=== PATIENT | female | born 2000 | race Caucasian/White ===

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

== ENCOUNTER 2022-03-11 19:09 | Emergency (ER) | payer OTHER, SELFPAY ==
[2022-03-11 19:24] VITALS: BP 131/93; PULSE 71; RESP 14; TEMP 37.1; O2SAT 100
[2022-03-11 19:26] VITALS: BP 131/93; PULSE 71; RESP 14; TEMP 37.1; O2SAT 100
--- NOTE | 2022-03-11 19:36 | ED.GENADULT ---
HPI - General Adult General Chief complaint: Urogenital-Female Stated complaint: Buring urination, low back pain, fatigue History of Present Illness HPI narrative: 21 y/o female. PMHx none reported. Presents to [facility] today with acute complaints of urinary frequency & dysuria since this AM. Client tells me that when she initiates her urine stream, she has been experiencing burning to her urethral meatus region. In addition, she describes a mild degree of suprapubic 'pressure'. The patient reports that these are often the same issues she will begin to experience with the onset of UTI historically. No fevers. No gross abdominal pain, N/V. She endorses a mild and intermittent low back 'aching' sensation. No severe pain or hematuria. Client denies pelvic pain, vaginal discharge. She reports to have had only one sexual partner, and the same sexual partner, for a long time. Denies concerns for venereal disease. No additional acute c/o upon PE. Related Data Home Medications Medication Instructions Recorded Confirmed levonorgestrel 20 mcg/24 hours (7 20 mcg intrauterine ONCE 08/14/20 03/11/22 yrs) 52 mg intrauterine device (Mirena) Allergies Allergy/AdvReac Type Severity Reaction Status Date / Time No Known Allergies Allergy Verified 03/11/22 19:25 Review of Systems Review of Systems: CONSTITUTIONAL: Denies fever, chills, sweats. EYES: Denies visual changes, redness, discharge. ENT: Denies rhinorrhea, congestion, sore throat, otalgia. CARDIOVASCULAR: Denies chest pain, palpitations, edema. RESPIRATORY: Denies dyspnea, wheezing, cough GASTROINTESTINAL: Denies abdominal pain, nausea, vomiting, diarrhea. GENITOURINARY: Positive dysuria, urgency. No hematuria, abnormal discharge SKIN: Denies rash or itching. MUSCULOSKELETAL: Intermittent low back 'ache', no joint pain, or myalgia. NEUROLOGIC: Denies numbness, or focal weakness. PSYCHIATRIC: Denies anxiety or depression. ON LICENSE OF [facility] Past Medical History Medical History Patient denies medical problems Surgical History Surgical History No significant past surgical history Social History Social History Smoking status: Never smoker Alcohol intake: never Exam Narrative: GENERAL: This is a well-nourished, well-developed adult, in no apparent distress. HEAD: normocephalic. EARS: External ears normal. NOSE: External nose normal. THROAT: Mucous membranes moist. NECK: Neck supple. CARDIOVASCULAR: Regular rate and rhythm. RESPIRATORY: Clear to auscultation. GASTROINTESTINAL: Abdomen soft, non-tender, nondistended. Bowel sounds are active. No guarding. No CVA tenderness. SKIN: warm, intact with no suspicious lesions or rash, good texture and turgor. NEURO: Alert and age appropriate. Course Course Level of Care: Express Care Visit Vital Signs Vital signs: Vital Signs Temperature 37.1 C 03/11/22 19:24 Pulse Rate 71 03/11/22 19:24 Respiratory Rate 14 03/11/22 19:24 Blood Pressure 131/93 H 03/11/22 19:24 Pulse Oximetry 100 03/11/22 19:24 Oxygen Delivery Room Air 03/11/22 19:24 Temperature 37.1 C 03/11/22 19:26 Pulse Rate 71 03/11/22 19:26 Respiratory Rate 14 03/11/22 19:26 Blood Pressure 131/93 H 03/11/22 19:26 Pulse Oximetry 100 03/11/22 19:26 Oxygen Delivery Room Air 03/11/22 19:26 Medical Decision Making [facility] Narrative Medical decision making narrative: -Afebrile, non-tachycardic, appears non-toxic. -Urine Dip stick reveals 1+ leukocytes. Mild RBCs, consider potential cystis. -No CVA tenderness, no gross hematuria. Similar to presentation of historical UTI. -Her urine has been send for additional Culture analysis. -Today, I will start her on oral Augmentin regimen, as she her most recent Urine Culture reveals > 100,
== END 2022-03-11 19:36 | disposition home or self-care (01) ==
PROVIDERS: Emergency Provider Nurse Practitioner Adult Health; PCP Pediatrics
DX: N39.0 Urinary tract infection, site not specified (principal)
CPT/HCPCS: 81003; 87077; 87086; 87088; 87186; 99213; G0463

== ENCOUNTER 2022-05-02 16:33 | Emergency (ER) | payer OTHER, SELFPAY ==
--- NOTE | ~2022-05-02 | US_ITS ---
EXAMINATION: US pelvic complete DATE: 05/02/2022 21:23 INDICATION: LLQ abd pain, concern for torsion TECHNIQUE: Multiple transabdominal and endovaginal sonographic images of the pelvis were obtained. COMPARISON: CT abdomen pelvis, same date. FINDINGS: Uterus: 9.0 x 2.8 x 5.2 cm. Endometrial complex measures 3.9 mm. IUD, in good position. Right Ovary: 4.2 x 2.1 x 2.7 cm. Vascular flow is present. Left Ovary: 4.9 x 2.0 x 2.3 cm. Vascular flow is present. There is no free fluid in the pelvis. IMPRESSION: IUD, in good position. Otherwise normal pelvic sonogram findings. Specifically, there is no sonograph ic evidence of ovarian torsion. Reviewed, dictated and finalized at location K. IMPRESSION: IUD, in good position. Otherwise normal pelvic sonogram findings. Specifically, there is no sonographic evidence of ovarian torsion.
--- NOTE | ~2022-05-02 | CT_ITS ---
EXAMINATION: CT abdomen pelvis w con DATE: 05/02/2022 19:39 INDICATION: LLQ tenderness, epigastric pain TECHNIQUE: Computed tomography (CT) of the abdomen and pelvis was performed with 100 mL Omnipaque-350 intravenous contrast. Automated exposure control and iterative reconstruction technique were employe d. The dose-length product was 373.10 mGy-cm. COMPARISON: None. FINDINGS: Lower thorax: Unremarkable Liver: Normal. Biliary/Gallbladder: Gallbladder is normal. No bile duct dilation. Pancreas: No mass or duct dilation. Spleen: Normal. Adrenals:No mass. Kidneys: No suspicious mass, stone, or hydronephrosis. Simple left midpole cyst. GI tract: Distal esophageal wall edema as can be seen with esophagitis. No small or large bowel dilat ion. Normal appendix. Mesentery/Peritoneum: No ascites, mass, or free air. Retroperitoneum: No mass. Pelvis: Mild left ovarian enlargement, up to a maximum dimension of 5 cm, with a suggestion of mild s urrounding inflammatory change. Remaining pelvic organs are within normal limits. IUD, in good positi on. Soft Tissues: Soft tissues and body wall unremarkable. Bones: No acute osseous finding. IMPRESSION: Mildly enlarged, inflamed left ovary, consider torsion in the differential and pelvic ultrasound for further evaluation. Reviewed, dictated and finalized at location K.
--- NOTE | 2022-05-02 17:03 | ED.ABDPAIN ---
HPI - Abdominal Pain General Chief Complaint: Abdominal Pain <MAYURI Mason Last Filed: 05/02/22 22:01> Stated Complaint: abd pain after drinking last night <MAYURI Mason Last Filed: 05/02/22 22:01> Time Seen by Provider: 05/02/22 16:55 <MAYURI Mason Last Filed: 05/02/22 22:01> History of Present Illness HPI narrative: 22-year-old female here for evaluation of abdominal pain since last evening. Patient states the pain is a sharp stabbing pain in her epigastric region that radiates to her left lower quadrant. Denies a history of previous similar pain. She attempted Advil yesterday without significant relief of her pain. She states that she has had 2 episodes of vomiting today nonbloody/nonbilious emesis. No constipation, diarrhea, fevers, chills, dysuria urgency. Patient states that she was drinking alcohol last night and the pain came on after drinking vodka. <MAYURI Mason Last Filed: 05/02/22 22:01> Related Data Home Medications: Home Medications Medication Instructions Recorded Confirmed levonorgestrel 20 mcg/24 hours (8 20 mcg intrauterine ONCE 08/14/20 03/11/22 yrs) 52 mg intrauterine device (Mirena) <MAYURI Mason Last Filed: 05/02/22 22:01> Allergies/Adverse Reactions: Allergies Allergy/AdvReac Type Severity Reaction Status Date / Time No Known Allergies Allergy Verified 03/11/22 19:25 <MAYURI Mason Last Filed: 05/02/22 22:01> Review of Systems Review of Systems: Gen: Denies fevers or chills Eyes: Denies eye pain or visual change ENT: Denies congestion Respiratory: Denies shortness of breath or cough CV: Denies chest pain or palpitations GI: Reports abdominal pain nausea and vomiting. denies burning, urgency, frequency or hematuria Musculoskeletal: Denies back pain or muscle pain Neuro: Denies numbness, tingling, weakness or focal weakness Skin: Denies rash Except as documented, all other systems reviewed and negative <Aparna Coy PA-C - Last Filed: 05/02/22 22:01> [facility] Past Medical History Medical History: Medical History Patient denies medical problems <Aparna Coy PA-C - Last Filed: 05/02/22 22:01> Surgical History Surgical History: Surgical History No significant past surgical history <Aparna Coy PA-C - Last Filed: 05/02/22 22:01> Social History Social History: Social History Smoking status: Never smoker Alcohol intake: never <Aparna Coy PA-C - Last Filed: 05/02/22 22:01> Exam Narrative: APPEARANCE: Well appearing, no pain in distress, well-nourished. Head: Normocephalic and atraumatic. EYES: PERRLA/EOMI, conjunctivae clear NOSE: No nasal drainage EARS: External ear normal in appearance THROAT: Oropharynx is clear. Mucous membranes are moist. NECK: Supple. No adenopathy, no masses. RESPIRATORY: Airway patent, respirations nonlabored. Clear to auscultation bilaterally, no rales, rhonchi, wheezing. CARDIOVASCULAR: Regular rate and rhythm without murmurs, rubs, or gallops. ABDOMINAL: Tenderness to palpation in her epigastric/llq region. normoactive bowel sounds. Soft, nondistended. No rebound tenderness or guarding. MUSCULOSKELETAL: Extremities are warm and well-perfused. Moves all extremities well. No edema. NEURO: Normal speech. No focal neurologic deficits. SKIN: Skin is warm and dry. No rashes. PSYCHIATRIC: Normal affect/mood. <Aparna Coy PA-C - Last Filed: 05/02/22 22:01> Course PROPERTY SUPERVISOR/PA Physician Supervision For this encounter, I have reviewed the mid-level provider documentation, treatment plan and medical decision making. I have had [id number] time with the patient.
[2022-05-02 17:25] VITALS: BP 133/98; PULSE 83; RESP 22; O2SAT 100
[2022-05-02 17:32] VITALS: BP 135/89; PULSE 82; RESP 8; O2SAT 97
[2022-05-02 17:35] LABS: Basophils Percent Auto 0.2 % (0.2-1.2); Eosinophils Percent Auto 0.2 % (0-4.4); Hematocrit 41.5 % (37.0-47.0); Hemoglobin 13.9 g/dL (12.0-15.0); Immature Granulocyte Absolute 0.05 K/mm3 (0.00-0.031); Immature Granulocyte Percent A 0.3 % (0-0.5); Lymphocytes Absolute Auto 2.08 K/mm3 (0.9-3.2); Lymphocytes Percent Auto 12.1 % (18.3-44.2); Mean Corpuscular HGB Conc 33.5 g/dl (32-36); Mean Corpuscular Hemoglobin 29.5 pg (26-34); Mean Corpuscular Volume 88.1 fl (80-100); Mean Platelet Volume 9.3 fl (7.4-10.4); Monocytes Percent Auto 5.5 % (2.6-8.5); Neutrophils Absolute Auto 14.1 K/mm3 (1.3-6.7); Neutrophils Percent Auto 81.7 % (45.5-73.1); Platelet Count Result 237 k/mm3 (150-375); Red Blood Count 4.71 M/mm3 (4.2-5.4); Red Cell Distribution Width 11.8 % (11.5-14.5); White Blood Count 17.2 K/mm3 (4.5-10.0)
[2022-05-02] MEDS: SODIUM CHLORIDE 0.9% IV 1,000 ML 999 ML IV CONT (17:37)
[2022-05-02] MEDS: FAMOTIDINE 20 MG/2 ML VIAL IV PUSH (17:38)
[2022-05-02] MEDS: ONDANSETRON INJ 4 MG/2 ML VIAL IV PUSH (17:38)
[2022-05-02 17:51] LABS: Alanine Aminotransferase 24 U/L (6-35); Albumin Level 4.8 g/dL (3.5-5.1); Alkaline Phosphatase 50 U/L (38-126); Anion Gap 10 mmol/L (8-16); Aspartate Amino Transferase 29 U/L (14-36); Bilirubin,Total 0.8 mg/dL (0.2-1.3); Blood Urea Nitrogen 14 mg/dL (7-17); Calcium 9.4 mg/dL (8.4-10.2); Carbon Dioxide 25 mmol/L (22-30); Chloride 104 mmol/L (98-107); Estimated Glomerular Filt Rate > 60; Glucose 98 mg/dL (65-110); Lipase 69 U/L (23-300); Potassium 3.7 mmol/L (3.4-5.0); Sodium 139 mmol/L (137-145)
[2022-05-02 18:18] VITALS: PULSE 83; RESP 21; O2SAT 91
[2022-05-02 18:31] VITALS: PULSE 67; RESP 20; O2SAT 100
[2022-05-02 18:45] VITALS: PULSE 89; RESP 22; O2SAT 100
[2022-05-02 19:21] LABS: Appearance Urine Slightly Cloudy (Clear); Bilirubin Urine Negative (Negative); Blood Urine 2+ (Negative); Color Urine Yellow (Yellow); Glucose Urine UA Negative (Negative); Ketones Urine Negative (Negative); Leukocyte Esterase Ur 1+ LEU/UL (Negative); Nitrate Urine Negative (Negative); Protein Urine Negative (Negative); Specific Grav Ur 1.015 (1.001-1.035); Urobilinogen Urine 0.2 mg/dL (<2.0); pH Urine 7.5 (5.0-9.0)
[2022-05-02 19:24] LABS: Bacteria Urine Trace /hpf; Mucus Urine Rare /lpf; RBC Urine 0-2 /hpf (0-2); Squamous Epithelial Cell Urine Moderate /hpf (Few)
[2022-05-02 19:25] LABS: Add Urine Microscopic? YES
[2022-05-02] MEDS: KETOROLAC 15 MG/ML VIAL (*BKC) IV PUSH ×2 (20:29→21:49)
== END 2022-05-02 21:56 | disposition home or self-care (01) ==
PROVIDERS: Physician Assistant; Emergency Provider Emergency Medicine; PCP Pediatrics
DX: R10.32 Left lower quadrant pain (principal); Z97.5 Presence of (intrauterine) contraceptive device; N83.8 Other noninflammatory disorders of ovary, fallopian tube and broad ligament
CPT/HCPCS: 36415; 74177; 76856; 80053; 81001; 81025; 83690; 85025; 87086; 87088; 96361; 96374; 96375; 99284; J1885; J2405; J7030; Q9967

== ENCOUNTER 2022-05-20 16:02 | Emergency (ER) | payer OTHER, SELFPAY ==
[2022-05-20 16:14] VITALS: BP 130/80; PULSE 100; RESP 16; TEMP 36.9; O2SAT 100
--- NOTE | 2022-05-20 16:46 | ED.URI ---
HPI - URI/Sore Throat General Chief Complaint: Upper Respiratory Infection Stated Complaint: congestion, cough, pain w/ breathing Time Seen by Provider: 05/20/22 16:40 Source: patient, RN notes reviewed and old records reviewed Mode of arrival: ambulatory Limitations: no limitations History of Present Illness HPI Narrative: 22-year-old female who presents to [facility] with complaints of nasal congestion with yellowish drainage,dry cough, pain with deep breathing and coughing along lower ribs, denies any known fevers for the past 3 day duration.Patient has taken Ibuprofen for her symptoms, denies any antihistamines or cough medications OTC. Patient has had Covid vaccinations and had COVID in August of 2020. MD elicited complaint: cough (.), nasal congestion and other (pain with deep breathing and cough) Onset (ago): day(s) (day 3 of symptoms) Able to tolerate fluids by mouth: Yes Treatments prior to arrival: ibuprofen Related Data Home Medications Medication Instructions Recorded Confirmed levonorgestrel 20 mcg/24 hours (8 20 mcg intrauterine ONCE 08/14/20 05/20/22 yrs) 52 mg intrauterine device (Mirena) Allergies Allergy/AdvReac Type Severity Reaction Status Date / Time No Known Allergies Allergy Verified 05/20/22 16:17 Review of Systems Review of Systems: CONSTITUTIONAL: Denies malaise, chills, sweats, or fever. EYES: Denies visual changes, redness, or discharge. ENT: Reports rhinorrhea, congestion, no sinus pain, no otalgia positive for sore throat. CARDIOVASCULAR: Denies chest pain, palpitations, or edema. RESPIRATORY: Reports cough.? Denies dyspnea. states some rib pain with cough and deep breathing GASTROINTESTINAL: Denies abdominal pain, nausea, vomiting, diarrhea SKIN: Denies rash or itching. MUSCULOSKELETAL: Denies myalgia. NEUROLOGIC: Denies headache. All systems reviewed & are unremarkable except as noted in HPI and below PMFSH Past Medical History Medical History (Updated 05/25/22 @ 08:58 by Mere Sierra NP) COVID-19 2020 UTI (urinary tract infection) Surgical History Surgical History (Updated 05/25/22 @ 08:50 by Mere Sierra NP) Hx of tonsillectomy Social History Social History (Updated 05/25/22 @ 08:59 by Mere Sierra NP) Smoking status: Never smoker Alcohol intake: never Substance use type: does not use Gender identity (if verbalized by the patient): Female Comments At time of signature, agree with nursing past medical, surgical, social and family history. There is no relevant family history pertinent to the presenting complaint Exam Narrative: GENERAL: Well-appearing, well-nourished, and in no acute distress. HEAD: Normocephalic EYES: PERRLA, conjunctivae clear ENT: Nares clear, turbinates edematous and erythematous, clear to light yellow discharge. Mucous membranes moist. TM pearly mccray with dull light reflex bilaterally; no tragal tenderness. Oropharynx erythematous without lesions. Tonsils absent, no throat exudate, no drooling, no hoarseness, no trismus, uvula midline. NECK: Supple. No lymphadenopathy CHEST: Clear to auscultation, breath sounds equal. No wheezing, rhonchi, rales, or stridor. No respiratory distress, speaks in full sentences.Some rib pain with cough and deep breathing, no dyspnea noted SAO2 100% on room air HEART: Regular rate and rhythm. No murmur heard. SKIN: Warm, dry, no rash. NEURO: Alert and oriented x3. PSYCH: Normal mood and affect Course Course Emergency Course: Patient is aware of diagnosis, understands and agrees to treatment plan.? Anticipatory guidance given.? Patient agrees to follow-up as directed and is aware of reasons to seek care at the emergency department. Portions of this record may have been created with voice recognition software Level of Care: Express Care Visit Vital Signs Vital signs: Vital Signs Temperature 36.9 C 05/20/22 16:14 Pulse Rate 100
== END 2022-05-20 17:06 | disposition home or self-care (01) ==
PROVIDERS: Emergency Provider Registered Nurse; PCP Pediatrics
DX: J06.9 Acute upper respiratory infection, unspecified (principal); R05.1 Acute cough
CPT/HCPCS: 99213; G0463

== ENCOUNTER 2023-02-01 13:07 | Emergency (ER) | payer OTHER, SELFPAY ==
[2023-02-01 13:15] VITALS: BP 128/88; PULSE 91; RESP 18; TEMP 36.6; O2SAT 100
--- NOTE | 2023-02-01 13:26 | ED.URI ---
HPI - URI/Sore Throat General Chief Complaint: Upper Respiratory Infection Stated Complaint: Hadache;Sore throat Source: patient and RN notes reviewed History of Present Illness HPI Narrative: 22 year old F presents to urgent care with complaints of a sore throat since Tuesday. Patient states she had a headache prior to that for approximately 1 week that did resolve. Patient denies any congestion, ear pain fever, chills chest pain shortness of breath, vomiting, or diarrhea. Patient did gargle salt water 1 time with minimal relief. Related Data Home Medications Medication Instructions Recorded Confirmed No Home Medications 02/01/23 02/01/23 Allergies Allergy/AdvReac Type Severity Reaction Status Date / Time No Known Allergies Allergy Verified 02/01/23 13:12 Review of Systems Review of Systems: CONSTITUTIONAL: Denies fever, chills, or sweats. EYES: Denies visual changes, redness, or discharge. ENT: sore throat CARDIOVASCULAR: Denies chest pain, palpitations, or edema. RESPIRATORY: Denies cough or dyspnea. GASTROINTESTINAL: Denies abdominal pain, nausea, vomiting, or diarrhea. GENITOURINARY: Denies dysuria or hematuria. SKIN: Denies rash or itching. MUSCULOSKELETAL: Denies back pain, joint pain, or myalgia. NEUROLOGIC: Denies headache, numbness, or weakness. Pertinent positives per HPI. [facility] Past Medical History Medical History (Updated 02/01/23 @ 13:33 by Laila Tenorio, [facility]) COVID-19 2020 UTI (urinary tract infection) Surgical History Surgical History (Updated 05/25/22 @ 08:50 by Mere Sierra NP) Hx of tonsillectomy Social History Social History (Updated 05/25/22 @ 08:59 by Mere Sierra NP) Smoking status: Never smoker Alcohol intake: never Substance use type: does not use Gender identity (if verbalized by the patient): Female Comments At the time of my signature, I reviewed and agree with the nursing past medical, surgical, social, and family history. There is no relevant family history pertinent to the patient complaint. Exam Narrative: GENERAL: This is a well-nourished, well-developed patient, in no apparent distress. HEAD: normocephalic, atraumatic. EYES: Sclera clear/white. Vision is grossly intact. EARS: External ears normal, auditory canals clear and without drainage, TMs normal without perforation. Hearing grossly intact. NOSE: External nose normal with no obvious nasal discharge, nares without redness, no rhinorrhea. THROAT: Mucous membranes moist, posterior pharynx erythemic. No exudate noted. NECK: Neck supple, non-tender without lymphadenopathy, masses or thyromegaly. CARDIOVASCULAR: Regular rate RESPIRATORY: No respiratory distress SKIN: warm, intact with no suspicious lesions or rash, good texture and turgor. NEURO: awake, alert, and oriented to person, place and time. There were no obvious focal neurologic abnormalities. Course Course Level of Care: Express Care Visit Vital Signs Vital signs: Vital Signs Temperature 97.8 F 02/01/23 13:15 Pulse Rate 91 02/01/23 13:15 Respiratory Rate 18 02/01/23 13:15 Blood Pressure 128/88 02/01/23 13:15 Pulse Oximetry 100 02/01/23 13:15 Oxygen Delivery Room Air 02/01/23 13:15 Temperature 97.8 F 02/01/23 13:15 Pulse Rate 91 02/01/23 13:15 Respiratory Rate 18 02/01/23 13:15 Blood Pressure 128/88 02/01/23 13:15 Pulse Oximetry 100 02/01/23 13:15 Oxygen Delivery Room Air 02/01/23 13:15 reviewed MDM - URI/Sore Throat MDM Narrative Medical decision making narrative: Rapid strep is negative in the office; however we will send to the lab for confirmation; there is a small percentage chance that it can come back positive; if it is, we will call you in 2-3days; and your prescription will be call in to your pharmacy. However, there is NO indication for antibiotic at this time. -Increase your fluids and Vitamin C. -Oral rinses such as: Salt water g
== END 2023-02-01 13:34 | disposition home or self-care (01) ==
PROVIDERS: Emergency Provider Nurse Practitioner Family; PCP Pediatrics
DX: J02.9 Acute pharyngitis, unspecified (principal); Z86.16 Personal history of COVID-19
CPT/HCPCS: 87081; 87880; 99213; G0463

== ENCOUNTER 2023-02-24 15:23 | Emergency (ER) | payer OTHER, SELFPAY ==
[2023-02-24 15:32] VITALS: BP 138/87; PULSE 76; RESP 16; TEMP 36.8; O2SAT 100
--- NOTE | 2023-02-24 15:38 | ED.FEMALEGU ---
HPI - Female Genitourinary General Chief complaint: Urogenital-Female Stated complaint: Pain urinating; Back spasms Time Seen by Provider: 02/24/23 15:39 Source: patient and RN notes reviewed Mode of arrival: ambulatory Limitations: no limitations History of Present Illness HPI Narrative: 22-year-old female presenting for complaint of burning with urination, frequency, and urgency over the past week. She took azo for the 1st 5 days of symptoms without significant relief. She denies abdominal pain, flank pain, hematuria, nausea vomiting, diarrhea, fevers or chills. She denies concern for STD. LMP irregular with Mirena. Related Data Home Medications Medication Instructions Recorded Confirmed escitalopram oxalate 10 mg tablet 10 mg PO DAILY 02/24/23 02/24/23 lamotrigine 25 mg tablet 75 mg PO DAILY 02/24/23 02/24/23 Allergies Allergy/AdvReac Type Severity Reaction Status Date / Time No Known Allergies Allergy Verified 02/24/23 15:35 Review of Systems Review of Systems: CONSTITUTIONAL: Denies body aches, fever, chills, or sweats. CARDIOVASCULAR: Denies chest pain, palpitations, or edema. RESPIRATORY: Denies cough or dyspnea. GASTROINTESTINAL: Denies abdominal pain, nausea, vomiting, or diarrhea. GENITOURINARY: Reports dysuria, frequency, urgency, denies hematuria, flank pain SKIN: Denies rash, itching, or wounds. MUSCULOSKELETAL: Denies back pain or myalgia. [facility] Past Medical History Medical History COVID-19 2020 UTI (urinary tract infection) Surgical History Surgical History Hx of tonsillectomy Social History Social History Smoking status: Never smoker Alcohol intake: never Substance use type: does not use Gender identity (if verbalized by the patient): Female Comments At time of signature, I have reviewed and agree with nursing past medical, surgical, social and family history unless otherwise noted. Please see nursing chart for further information. There is no relevant family history pertinent to the presenting complaint Exam Narrative: GENERAL: Well-appearing and in no acute distress. HEAD: Normocephalic EYES: EOMI. . ENT: Mucous membranes pink and moist. NECK: Normal AROM. Supple. CHEST: No respiratory distress. Clear to auscultation. HEART: Regular rate and rhythm. ABDOMEN: Soft, nontender, nondistended, normal active bowel sounds. No CVA tenderness MUSCULOSKELETAL: No bony tenderness. SKIN: Warm, dry, no rash. NEURO: No focal deficits. Alert and oriented x3. Gait steady. PSYCH: Normal affect. Course Course Emergency Course: Patient is aware of diagnosis, understands and agrees to treatment plan. Anticipatory guidance given. Patient agrees to follow-up as directed and is aware of reasons to seek care at the emergency department. Portions of this record may have been created with voice recognition software Level of Care: Express Care Visit Vital Signs Vital signs: Vital Signs Temperature 98.2 F 02/24/23 15:32 Pulse Rate 76 02/24/23 15:32 Respiratory Rate 16 02/24/23 15:32 Blood Pressure 138/87 02/24/23 15:32 Pulse Oximetry 100 02/24/23 15:32 Oxygen Delivery Room Air 02/24/23 15:32 Temperature 98.2 F 02/24/23 15:32 Pulse Rate 76 02/24/23 15:32 Respiratory Rate 16 02/24/23 15:32 Blood Pressure 138/87 02/24/23 15:32 Pulse Oximetry 100 02/24/23 15:32 Oxygen Delivery Room Air 02/24/23 15:32 Reviewed MDM - Female Genitourinary MDM Narrative Medical decision making narrative: Results of urine reviewed with patient. Will send for culture. Macrobid Rx. Discussed physical exam findings. Advised supportive measures and signs/symptoms to go to the ER. Pt is appropriate for outpt treatment and f/u. Differential Diagnosis Differential diagnosis
== END 2023-02-24 15:51 | disposition home or self-care (01) ==
PROVIDERS: Emergency Provider Nurse Practitioner Family; PCP Pediatrics
DX: N39.0 Urinary tract infection, site not specified (principal); Z86.16 Personal history of COVID-19
CPT/HCPCS: 81003; 87086; 87088; 99213; G0463

== ENCOUNTER 2023-05-24 15:56 | Emergency (ER) | payer OTHER, SELFPAY ==
[2023-05-24 16:07] VITALS: BP 132/81; PULSE 92; RESP 16; TEMP 37.2; O2SAT 100
--- NOTE | 2023-05-24 16:34 | ED.URI ---
HPI - URI/Sore Throat General Chief Complaint: Upper Respiratory Infection Stated Complaint: Sore Throat;Chills;Headache Time Seen by Provider: 05/24/23 16:25 Source: patient, RN notes reviewed and old records reviewed Mode of arrival: ambulatory Limitations: no limitations History of Present Illness HPI Narrative: 23 year old female who presents to [facility] care with complaints of sore throat, stuffy nose. fatigue, headache which started on Tuesday which has increased in intensity. Patient reports that she has been taking Ibuprofen, Benadryl and also nasal spray. Patient reports that she did a home COVID test yesterday which was negative. Patient reports that she has felt stuffed up and has had some chills and also felt hot with some low grade fevers. MD elicited complaint: sore throat, rhinorrhea, nasal congestion and other (headache) Onset (ago): day(s) (4) Pain scale (0-10): 4 Able to tolerate fluids by mouth: Yes Exacerbating factors: swallowing Treatments prior to arrival: ibuprofen and other (nasal spray, Benadryl) Related Data Home Medications Medication Instructions Recorded Confirmed escitalopram oxalate 10 mg tablet 10 mg PO DAILY 02/24/23 05/24/23 lamotrigine 150 mg tablet 150 mg PO DAILY 05/24/23 05/24/23 trazodone 50 mg tablet 50 mg PO DAILY 05/24/23 05/24/23 Allergies Allergy/AdvReac Type Severity Reaction Status Date / Time No Known Allergies Allergy Verified 05/24/23 16:09 Review of Systems Review of Systems: CONSTITUTIONAL: Reports malaise, chills, sweats, or fever. EYES: Denies visual changes, redness, or discharge. ENT: Reports rhinorrhea, congestion, sinus pain, no otalgia and positive sore throat. CARDIOVASCULAR: Denies chest pain, palpitations, or edema. RESPIRATORY: Reports occasional cough.? Denies dyspnea. GASTROINTESTINAL: Denies abdominal pain, nausea, vomiting, diarrhea SKIN: Denies rash or itching. MUSCULOSKELETAL: Denies myalgia. NEUROLOGIC:Reports headache. All systems reviewed & are unremarkable except as noted in HPI and below PMFSH Past Medical History Medical History COVID-19 2020 UTI (urinary tract infection) Surgical History Surgical History Hx of tonsillectomy Social History Social History Smoking status: Never smoker Alcohol intake: never Substance use type: does not use Gender identity (if verbalized by the patient): Female Comments At time of signature, agree with nursing past medical, surgical, social and family history. There is no relevant family history pertinent to the presenting complaint Exam Narrative: GENERAL: Well-appearing, well-nourished, and in no acute distress. HEAD: Normocephalic EYES: PERRLA, conjunctivae clear ENT: Nares clear, turbinates edematous and erythematous, clear discharge. Mucous membranes moist. TM pearly mccray with dull light reflex bilaterally; no tragal tenderness. Oropharynx erythematous without lesions. Tonsils not present and throat with white exudate, no drooling, no hoarseness, no trismus, uvula midline. NECK: Supple. lymphadenopathy CHEST: Clear to auscultation, breath sounds equal. No wheezing, rhonchi, rales, or stridor. No respiratory distress, speaks in full sentences.SAO2 100% on room air HEART: Regular rate and rhythm. No murmur heard. SKIN: Warm, dry, no rash. NEURO: Alert and oriented x3. PSYCH: Normal mood and affect Course Course Emergency Course: Patient is aware of diagnosis, understands and agrees to treatment plan.? Anticipatory guidance given.? Patient agrees to follow-up as directed and is aware of reasons to seek care at the emergency department. Portions of this record may have been created with voice recognition software Level of Care: Express Care Visit Vital Signs Vital signs: Nataliia
== END 2023-05-24 16:47 | disposition home or self-care (01) ==
PROVIDERS: Emergency Provider Registered Nurse
DX: J02.9 Acute pharyngitis, unspecified (principal); Z79.899 Other long term (current) drug therapy
CPT/HCPCS: 87081; 87804; 87880; 99213; G0463

== ENCOUNTER 2023-09-15 13:17 | Emergency (ER) | payer SELFPAY ==
[2023-09-15 13:36] VITALS: BP 127/93; PULSE 99; RESP 16; TEMP 36.9; O2SAT 100
[2023-09-15 13:38] VITALS: BP 127/93; PULSE 99; RESP 16; TEMP 36.9; O2SAT 100
--- NOTE | 2023-09-15 13:39 | ED.URI ---
HPI - URI/Sore Throat General Chief Complaint: Upper Respiratory Infection Stated Complaint: Sore Throat,Cough,Fever,Chills and STD Test Time Seen by Provider: 09/15/23 13:20 Source: patient Mode of arrival: ambulatory Limitations: no limitations History of Present Illness HPI Narrative: Patient is a 23-year-old female that presents with sore throat, fever, body aches, chills, cough for 2 days. Patient has been taking Sudafed and Advil. Patient is currently on 7 days of Flagyl and doxycycline for exposure to chlamydia. Patient also had 1 time dose of azithromycin. Patient had negative COVID test at home. Reports she did have some vaginal burning and discharge. Denies any nausea, vomiting, diarrhea. Related Data Home Medications Medication Instructions Recorded Confirmed escitalopram oxalate 10 mg tablet 10 mg PO DAILY 02/24/23 09/15/23 lamotrigine 150 mg tablet 75 mg PO DAILY 05/24/23 09/15/23 trazodone 50 mg tablet 25 mg PO DAILY 05/24/23 09/15/23 doxycycline hyclate 100 mg capsule 100 mg PO Q12H 09/15/23 09/15/23 metronidazole 500 mg tablet 500 mg PO BID 09/15/23 09/15/23 Allergies Allergy/AdvReac Type Severity Reaction Status Date / Time No Known Allergies Allergy Verified 05/24/23 16:09 Review of Systems Review of Systems: All systems reviewed & are unremarkable except as noted in HPI and below Constitutional: Constitutional: Reports body ache(s), Reports chills, Denies fatigue, Reports fever(s), Denies headache(s), Denies malaise and Denies weakness Eyes: Eyes: Denies blurry vision, Denies itchy eyes and Denies loss of vision ENT: Denies otalgia, Denies headache(s), Denies nasal congestion, Denies sinus pain and Reports sore throat Cardiovascular: Cardiovascular: Denies chest pain, Denies irregular heart rhythm and Denies dyspnea Respiratory: Respiratory: Reports cough and Denies dyspnea Gastrointestinal: Gastrointestinal: Denies abdominal pain, Denies diarrhea, Denies nausea and Denies vomiting Musculoskeletal: Musculoskeletal: Denies back pain, Denies myalgias and Denies arthralgias Integumentary/Breasts: Skin/Breast: Denies pruritus and Denies rash Neurologic: Denies headache(s), Denies loss of vision and Denies weakness Psychiatric: Psychiatric: Reports no additional psychiatric complaints Endocrine: Endocrine: Denies fatigue Allergic/Immunologic: Allergic/Immunologic: Denies itchy eyes PMFSH Past Medical History Medical History COVID-19 2020 UTI (urinary tract infection) Surgical History Surgical History Hx of tonsillectomy Social History Social History Smoking status: Never smoker Alcohol intake: never Substance use type: does not use Gender identity (if verbalized by the patient): Female Comments At time of signature, agree with nursing past medical, surgical, social and family history. There is no relevant family history pertinent to the presenting complaint. Exam Const: General: cooperative, healthy appearing, comfortable, no acute distress and well nourished Nutritional Appearance: well nourished Orientation/consciousness: patient oriented x3 Limitations: no limitations HENMT: Head: normal to inspection, normocephalic and atraumatic Ears: hearing grossly normal bilaterally, external ears normal, TM's normal bilaterally, EAC's normal and no periauricular adenopathy Face/Nose/Sinus: Normal external nose present, Abnormal mucous membranes and turbinates present erythematous bilateral and diffuse, normal facial exam, sinuses nontender and face symmetric Face and sinus: normal facial exam, sinuses nontender and face symmetric Mouth: Yes Normal oral and palatal mucosa present, Yes lip normal, Yes tongue normal, Yes Normal salivary glands and ducts present, Yes oropharynx normal and Yes moist mucous membranes
== END 2023-09-15 13:59 | disposition home or self-care (01) ==
PROVIDERS: Emergency Provider Nurse Practitioner Family
DX: J10.1 Influenza due to other identified influenza virus with other respiratory manifestations (principal); J02.0 Streptococcal pharyngitis; Z20.822 Contact with and (suspected) exposure to COVID-19; Z86.16 Personal history of COVID-19
CPT/HCPCS: 87426; 87804; 87880; 99213; G0463